=== PATIENT | female | born 1965 | race Caucasian/White ===

== ENCOUNTER 2018-05-29 12:07 | Inpatient (IN) | payer OTHER ==
[~2018-05-29] VITALS: Ht 152.4 cm; Wt 43.5 kg
[~2018-05-29 12:07] MED LIST: SYNTHROID112 MCG PO
[2018-05-31] MEDS ORDERED: CODE1TAB37 PO (09:09)
== END 2018-05-31 11:16 | disposition home or self-care (01) | DRG 742 ==
LOC: O/R 05-30 05:48 → RECOVERY 05-30 09:00 → OB/GYN 05-30 13:14
PROVIDERS: Urology; ADMIT Obstetrics & Gynecology
PROC: 0UQF4ZZ Repair Cul-de-sac, Percutaneous Endoscopic Approach (ICD-10-PCS; 2018-05-30)
PROC: 0USG4ZZ Reposition Vagina, Percutaneous Endoscopic Approach (ICD-10-PCS; 2018-05-30)
PROC: 0TJB8ZZ Inspection of Bladder, Via Natural or Artificial Opening Endoscopic (ICD-10-PCS; 2018-05-30)
PROC: 0UT9FZZ Resection of Uterus, Via Natural or Artificial Opening With Percutaneous Endoscopic Assistance (ICD-10-PCS; principal; 2018-05-30 09:00)
PROC: 0TQB8ZZ Repair Bladder, Via Natural or Artificial Opening Endoscopic (ICD-10-PCS; 2018-05-30 09:00)
DX: N81.11 Cystocele, midline (principal); N99.72 Accidental puncture and laceration of a genitourinary system organ or structure during other procedure; D25.1 Intramural leiomyoma of uterus; N84.0 Polyp of corpus uteri

== ENCOUNTER 2018-06-04 12:09 | Emergency (ER) | payer OTHER ==
[~2018-06-04] VITALS: Ht 160 cm; Wt 49.9 kg
[~2018-06-04 12:09] MED LIST changes: +CODE1TAB37 PO
[2018-06-04] MEDS ORDERED: SYNTHROID175 MCG (12:21)
== END 2018-06-04 14:16 | disposition home or self-care (01) ==
LOC: ER 12:09
DX: T83.098A Other mechanical complication of other urinary catheter, initial encounter (principal)